=== PATIENT | female | born 1940 | race African-American/Black ===

== ENCOUNTER 2018-09-08 08:05 | Day surgery (SDC) | payer MEDICARE, BC ==
[~2018-09-08] VITALS: Ht 165.1 cm; Wt 72.6 kg
[~2018-09-08 08:05] MED LIST: BALANCED SALT IRRIG SOLN COMB1 500ML OP ONE
[2018-09-08] MEDS ORDERED: TROPICAMIDE 1% OPHTH DROPS 15ML RIGHTEYE NR (08:50)
[2018-09-08] MEDS ORDERED: PHENYLEPHRINE HCL 10% OPHTH DROPS 5ML RIGHTEYE NR (08:50)
[2018-09-08] MEDS ORDERED: CYCLOPENTOLATE HCL 1% OPHTH DROPS 2ML RIGHTEYE NR (08:50)
[2018-09-08] MEDS ORDERED: LACTATED RINGERS 1,000 ML IV SCH (09:50)
[2018-09-08] MEDS ORDERED: ALBU90AE IH (10:22)
[2018-09-08] MEDS ORDERED: MONT10TA21 PO (10:22)
[2018-09-08] MEDS ORDERED: ASPI-1159 PO (10:22)
[2018-09-08] MEDS ORDERED: DILT360C28 PO (10:22)
[2018-09-08] MEDS ORDERED: LOVA40TA73 PO (10:22)
[2018-09-08] MEDS ORDERED: METO-396 PO (10:22)
[2018-09-08] MEDS ORDERED: FLUT100D IH (10:22)
[2018-09-08] MEDS ORDERED: ANAS1TAB7 PO (10:22)
[2018-09-08] MEDS ORDERED: HYDR25TA PO (10:22)
[2018-09-08] MEDS ORDERED: CIPROFLOXACIN 0.3% OPHTH SOLN 2.5ML ONE (10:24)
[2018-09-08] MEDS ORDERED: BALANCED SALT IRRIG SOLN 15ML ONE (10:24)
[2018-09-08] MEDS ORDERED: TETRACAINE 0.5% OPHTH DROPS 4ML ONE (10:24)
[2018-09-08] MEDS ORDERED: NEO/POLYMYX B SULF/DEXAMETH OPHTH OINT 3.5GM ONE (10:24)
[2018-09-08] MEDS ORDERED: HYALURONATE SODIUM 14 MG/ML 0.85ML SYRINGE IO ONE (10:24)
[2018-09-08] MEDS ORDERED: LIDOCAINE HCL/PF 2% 20 MG/ML 10ML VIAL ONE (10:24)
[2018-09-08] MEDS ORDERED: TRYPAN BLUE 0.5 ML DISP.SYRIN IO ONE (10:24)
[2018-09-08] MEDS ORDERED: PREDNISOLONE ACETATE 1% OPHTH DROPS 1ML ONE (10:24)
[2018-09-08] MEDS ORDERED: MIDAZOLAM HCL 2 MG/2 ML VIAL ONE (10:28)
== END 2018-09-08 12:20 | disposition home or self-care (01) ==
LOC: OR 08:05
PROVIDERS: ATTEND Ophthalmology
DX: H25.89 Other age-related cataract (principal); I10 Essential (primary) hypertension; H40.9 Unspecified glaucoma; E78.5 Hyperlipidemia, unspecified; E03.9 Hypothyroidism, unspecified; Z85.3 Personal history of malignant neoplasm of breast; Z98.890 Other specified postprocedural states; Z88.8 Allergy status to other drugs, medicaments and biological substances
CPT/HCPCS: 66984; 82962; J2250; J3490; V2632; Q9957

== ENCOUNTER → 2022-04-16 | Day surgery (SDC) | payer MEDICARE, BC ==
[~2022-04-16] VITALS: Ht 165.1 cm; Wt 68.0 kg
[~2022-04-16] MED LIST changes: +ALBU90AE IH; +ANAS1TAB7 PO; +ASPI-1497 PO; +BALANCED SALT IRRIG SOLN COMB1 500ML OP NR; -BALANCED SALT IRRIG SOLN COMB1 500ML OP ONE; +CYCLOPENTOLATE HCL 1% OPHTH DROPS 2ML LEFTEYE NR; +DILT360C37 PO; +FENTANYL CITRATE/PF 50MCG/ML 2ML VIAL ONE; +FLUT100D IH; +HYALURONATE SODIUM 10 MG/ML 0.55ML SYRINGE IO ONE; +HYDR25TA PO; +LACTATED RINGERS 1,000 ML IV SCH; +LOVA40TA73 PO; +METO-396 PO; +MIDAZOLAM HCL 2 MG/2 ML VIAL ONE; +MONT10TA21 PO; +PHENYLEPHRINE 2.5% OPHTH 15 DROP/ML BOTTLE LEFTEYE NR; +TROPICAMIDE 1% OPHTH DROPS 15ML LEFTEYE NR; +[UNRECOGNIZED DRUG - CODE] PO
[2022-04-16 11:40] LABS: BASOPHILS % 0.7 % (0.0-2.0); HEMATOCRIT. 36.1 % (36.0-48.0); HEMOGLOBIN. 11.7 g/dL (12.0-16.0); LYMPHOCYTES % 31.7 % (20.0-50.0); MEAN CORPUSCULAR HEMOGLOBIN 28.6 pg (28.0-32.0); MEAN CORPUSCULAR VOLUME 88.1 fL (81.0-99.0); MEAN PLATELET VOLUME 8.9 fl (7.4-10.4); NEUTROPHILS % 55.6 % (40.0-76.0); PLATELET 170 x1000/uL (130-400); RED BLOOD CELL COUNT 4.09 mill/uL (4.2-5.4); RED CELL DISTRIBUTION WIDTH 14.4 % (11.6-14.6)
[2022-04-16 12:02] LABS: CHLORIDE 104 mEq/L (98-107)
== END | disposition home or self-care (01) ==
LOC: OR 10:18
PROVIDERS: ATTEND Ophthalmology
DX: H25.89 Other age-related cataract (principal); I10 Essential (primary) hypertension; E78.00 Pure hypercholesterolemia, unspecified; J45.909 Unspecified asthma, uncomplicated; M19.90 Unspecified osteoarthritis, unspecified site; Z79.899 Other long term (current) drug therapy; Z98.890 Other specified postprocedural states; Z79.82 Long term (current) use of aspirin; Z20.822 Contact with and (suspected) exposure to COVID-19
CPT/HCPCS: 36415; 66984; 80048; 85025; 87426; 93005; C9803; J2250; J3010; J3490; V2632